=== PATIENT | female | born 2000 | race African-American/Black ===

== ENCOUNTER 2024-03-01 14:30 | Emergency (ER) | payer SELFPAY ==
[~2024-03-01] VITALS: Ht 162.6 cm; Wt 70.0 kg
[2024-03-01] MEDS: PREDNISONE 20MG TABLET PO NR (16:00)
[2024-03-01 16:27] VITALS: PULSE 99; RESP 24; O2SAT 96
[2024-03-01] MEDS: IPRATROPIUM BROMIDE (0.02%) 0.5MG/2.5ML NEB HHN NR (16:27)
[2024-03-01] MEDS: ALBUTEROL (0.083%) 2.5MG/3ML NEB HHN NR (16:28)
[2024-03-01] MEDS: ACETAMINOPHEN 325MG TABLET PO ONE (17:31)
[2024-03-01] MEDS: SODIUM CHLORIDE 0.9% 1,000 ML IV ONE (17:31)
[2024-03-01] MEDS ORDERED: P20 MT (18:09)
[2024-03-01 18:29] VITALS: BP 116/78; PULSE 84; RESP 20; TEMP 37.00296; O2SAT 99
== END 2024-03-01 19:03 | disposition home or self-care (01) ==
LOC: ER 14:30
DX: J45.901 Unspecified asthma with (acute) exacerbation (principal); J11.1 Influenza due to unidentified influenza virus with other respiratory manifestations
CPT/HCPCS: 71045; 94640; 96360; 99291; J7512; Z7610 ×5; J7030; 99285